=== PATIENT | male | born 1995 | race Caucasian/White ===

== ENCOUNTER 2019-08-26 16:54 | Emergency (ER) | payer BC ==
--- NOTE | 2019-08-26 19:14 | ED ---
Shortness of Breath - HPI Summary HPI Summary: This patient is a 24 year old M presenting to ED with a chief complaint of shortness of breath since two weeks ago. Two weeks ago, patient had headaches, dizziness, and generalized body aches/soreness. These symptoms developed into stomach pain and vomiting. After that, patient began to have shortness of breath and fever. He was then diagnosed with flu and pneumonia at [facility]. At [facility], patient had a CXR and a flu swab. Patient reports the CXR was abnormal. He was prescribed Tamiflu, an inhaler, and amoxicillin. After taking medications, patient reports the fever went away, but he still has a cough and shortness of breath. Patient overall reports that he feels better today than two weeks ago, but his breathing has worsened. Patient has not been eating well as he has had a bad appetite, but he has not been vomiting anymore. He reports mild diarrhea and mild abdominal pain today. He states he has chest pain upon deep breathing. Patient reports feeling [id number] and winded and has difficulty walking up the stairs. He has been coughing up yellow phlegm. He denies currently having a fever. Patient denies any other medical problems and is no longer taking any medications. Patient also reports having an abscess on his chest that he has had since last February. He reports it has been getting smaller and has previously drained yellow, white, and green pus. The patient rates the pain 2/10 in severity. Symptoms aggravated by deep breathing. Symptoms alleviated by nothing. - History of Current Complaint Chief Complaint: EDUpperRespComplaint Time Seen by Provider: 08/26/19 19:06 Hx Obtained From: Patient Onset/Duration: Gradual Onset, Lasting Weeks - 2 weeks ago, Still Present Timing: Constant Current Severity: Mild Dyspnea At: Rest Aggravating Factors: Deep Breaths Alleviating Factors: Nothing Associated Signs & Symptoms: Negative - Fever, Cough (Productive), Chest Pain w/ Cough - Allergy/Home Medications Allergies/Adverse Reactions: Allergies Allergy/AdvReac Type Severity Reaction Status Date / Time No Known Allergies Allergy Verified 08/26/19 18:57 Home Medications: Home Medications NK [No Home Medications Reported] 08/26/19 [History Confirmed 08/26/19] PMH/Surg Hx/FS Hx/Imm Hx Endocrine/Hematology History: Denies: Hx Diabetes Sensory History: Denies: Hx Legally Blind, Hx Deafness Opthamlomology History: Denies: Hx Legally Blind EENT History: Denies: Hx Deafness - Surgical History Surgical History: None Surgery Procedure, Year, and Place: Denies Infectious Disease History: No Infectious Disease History: Denies: Traveled Outside the [place] in Last 30 Days - Family History Known Family History: Positive: Hypertension Negative: Diabetes - Social History Alcohol Use: Occasionally Hx Substance Use: No Substance Use Type: Reports: None Hx Tobacco Use: No Smoking Status (MU): Never Smoked Tobacco Review of Systems Negative: Fever Positive: Chest Pain - Upon deep breathing Positive: Shortness Of Breath, Cough - Yellow phlegm Gastrointestinal: Other - Decreased appetite Positive: Abdominal Pain, Diarrhea. Negative: Vomiting Positive: Myalgia Skin: Other - Abscess on chest All Other Systems Reviewed And Are Negative: Yes Physical Exam - Summary Physical Exam Summary: Appearance: Well-appearing, Well-nourished, lying in bed comfortably Skin: Warm, dry, no obvious rash Eyes: sclera anicteric, no conjunctival pallor ENT: mucous membranes moist, pharynx appears normal Neck: Supple, nontender Respiratory: Clear to auscultation, no signs of respiratory distress Cardiovascular: Normal S1, S2. No murmurs. Normal distal pulses in tibial and radial bilaterally. Abdomen: Soft, nontender, normal active bowel sounds present Musculoskeletal: Normal, Strength/ROM Intact Neurological: A&Ox3, awake and alert, mentation is normal, speech is fluent and appropriate Psychiatric: affect is normal, does not appear anxious or depressed Triage Information Reviewed: Yes Vital Signs On Initial Exam: Initial Vitals Temp Pulse Resp BP Pulse Ox 97.2 F 87 18 175/106 98 08/26/19 16:56 08/26/19 16:56 08/26/19 16:56 08/26/19 16:56 08/26/19 16:56 Vital Signs Reviewed: Yes Procedures - Sedation Patient Received Moderate/Deep Sedation with Procedure: No Diagnostics - Vital Signs Vital Signs Temp Pulse Resp BP Pulse Ox 08/26/19 19:03 84 99 08/26/19 19:01 77 162/91 98 08/26/19 16:56 97.2 F 87 18 175/106 98 - Laboratory Lab Statement: Any lab studies that have been ordered have been reviewed, and results considered in the medical decision making process. - Radiology CXR Radiology Interpretation Completed By: ED Physician Summary of Radiographic Findings: Slight opacity of left mid-lung field, consistent with history of recent PNA, pending official radiology report. Re-Evaluation - Re-Evaluation First Eval Re-Evaluation Time: 19:43 Comment: Discussed results with patient. Educated patient on care for himself and approximate timeline of recovery. Patient will be discharged home with dx of PNA. Patient understands and agrees with this plan. Course/Dx - Course Course Of Treatment: This patient is a 24 year old M presenting to ED with a chief complaint of shortness of breath since two weeks ago. Patient was recently diagnosed with flu and PNA. CXR revealed: Slight opacity of left mid- lung field, consistent with history of recent PNA, pending official radiology report. Discussed results with patient. Educated patient on care for himself and approximate timeline of recovery. Patient will be discharged home with dx of PNA. Patient understands and agrees with this plan. - Diagnoses Provider Diagnoses: PNA (pneumonia) Discharge ED - Sign-Out/Discharge Documenting (check all that apply): Patient Departure - Discharge - Discharge Plan Condition: Good Disposition: HOME Patient Education Materials: Pneumonia (ED) Referrals: [facility] @ [Outside] Additional Instructions: Your chest xray looks ok, just a slight suggestion of some lingering inflammation in the left lung. Your vital signs and lung sounds are all normal as well. It is well within the realm of normal to take several weeks, typically 4-6, to recover from a case of pneumonia. Right now nothing further need be done , just take care of yourself, make sure to get plenty of sleep and nutrition. - Billing Disposition and Condition Condition: GOOD Disposition: Home - Attestation Statements Document Initiated by Carmita: Yes Documenting Scribe: Dakota Loza Provider For Whom Carmita is Documenting (Include Credential): MD Anatoly Championibe Attestation: [place], scribed for Rayo Ward MD on 08/27/19 at 0637. Scribe Documentation Reviewed: Yes Provider Attestation: The documentation as recorded by the Dakota galvin accurately reflects the service I personally performed and the decisions made by me, Rayo Ward MD Status of Scribe Document: Viewed
[2019-08-26 20:17] VITALS: BP 153/88
== END 2019-08-26 19:50 | disposition home or self-care (01) ==
LOC: ED 16:54
DX: J18.9 Pneumonia, unspecified organism (principal)
CPT/HCPCS: 71046; 99282